=== PATIENT | female | born 2005 | race Caucasian/White ===

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

== ENCOUNTER 2025-03-11 16:09 | Inpatient (IN) | payer MEDICAID, SELFPAY ==
[2025-03-11] VITALS (12 sets, daily range): BP systolic 111–133; BP diastolic 63–77; PULSE 87–123; RESP 16–20; TEMP 36.7–37; O2SAT 99–100; BMI 28.3; BMI 28.4
--- NOTE | 2025-03-11 15:36 | US_ITS ---
PROCEDURE INFORMATION: Exam: US , Follow up Exam date and time: 03/11/2025 3:52 PM Clinical indication: Multiple pregnancies; Twin ; Fetus 2; Third trimester (>=28 weeks 0 days); ; Additional info: Twin , vomiting, headache TECHNIQUE: Imaging protocol: Transabdominal ultrasound of the uterus, real time with image documentation. Follow-up (eg, re-evaluation of size by measuring standard growth parameters and amniotic fluid volume, re-evaluation of organ system(s) suspected or confirmed to be abnormal on a previous scan). COMPARISON: No relevant prior studies available. FINDINGS: Gestation: Monochorionic diamniotic twin gestation, fetus A. heart rate: 155 bpm presentation and position: presentation is cephalic. Placenta: Placenta is posterior/right lateral and grade 2. Amniotic fluid (Qualitative): Amniotic fluid is within normal limits for gestational age. kidneys: kidneys are normal. urinary bladder: bladder is normal. BIOMETRY: Gestational age (AUA): 29 weeks 6 days (30 weeks 4 days by LMP) Estimated due date (AUA): 05/21/2025 Estimated weight: 3 lb 2 oz +/- 7 oz (12 percentile) Biparietal diameter (BPD): 76 mm, 30 weeks 5 days (40 percentile) Head circumference (HC): 269 mm, 29 weeks 3 days (<2 percentile) Abdominal circumference (AC): 258 mm, 30 weeks 0 days (27 percentile) Femur length (FL): 55 mm, 29 weeks 0 days (5 percentile) IMPRESSION: Monochorionic diamniotic twin gestation fetus A, as above. PROCEDURE INFORMATION: Exam: US , Follow up Exam date and time: 03/11/2025 3:52 PM Clinical indication: Multiple pregnancies; Twin ; Fetus 2; Third trimester (>=28 weeks 0 days); ; Additional info: Twin , vomiting, headache TECHNIQUE: Imaging protocol: Transabdominal ultrasound of the uterus, real time with image documentation. Follow-up (eg, re-evaluation of size by measuring standard growth parameters and amniotic fluid volume, re-evaluation of organ system(s) suspected or confirmed to be abnormal on a previous scan). COMPARISON: No relevant prior studies available. FINDINGS: Gestation: Monochorionic diamniotic twin gestation, fetus B. heart rate: 172 bpm presentation and position: presentation is breech. Placenta: Placenta is posterior/right lateral and grade 2. Amniotic fluid (Qualitative): Amniotic fluid is within normal limits for gestational age. BIOMETRY: Gestational age (AUA): 30 weeks 2 days (30 weeks 4 days by LMP) Estimated due date (AUA): 05/18/2025 Estimated weight: 3 lb 9 oz +/- 8 oz (42 percentile) Biparietal diameter (BPD): 74 mm, 29 weeks 4 days (13 percentile) Head circumference (HC): 272 mm, 29 weeks 5 days (for percentile) Abdominal circumference (AC): 270 mm, 31 weeks 6 days (81 percentile) Femur length (FL): 56 mm, 29 weeks 4 days (11 percentile) IMPRESSION: Monochorionic diamniotic twin gestation fetus B, as above. PROCEDURE INFORMATION: Exam: US Biophysical Profile Without Non-Stress Test Exam date and time: 03/11/2025 3:52 PM Age: 19 years old Clinical indication: Multiple pregnancies; Twin ; Fetus 2; Third trimester (>=28 weeks 0 days); ; Additional info: Twin , vomiting, headache TECHNIQUE: Imaging protocol: US biophysical profile without non-stress testing. COMPARISON: US OB TRANSVAGINAL 04/23/2022 12:08 AM FINDINGS: Gestation: Fetus A heart rate: 155 bpm BIOPHYSICAL PROFILE: breathing (BPP): 2 out of 2. gross body movement (BPP): 2 out of 2. tone (BPP): 2 out of 2. Amniotic fluid (BPP): 2 out of 2. IMPRESSION: Normal biophysical profile score for fetus A 8/8. PROCEDURE INFORMATION: Exam: US Biophysical Profile Without Non-Stress Test Exam date and time: 03/11/2025 3:52 PM Age: 19 years old Clinical indication: Multiple pregnancies; Twin ; Fetus 2; Third trimester (>=28 weeks 0 days); ; Additional info: Twin , vomiting, headache TECHNIQUE: Imaging protocol: US biophysical profile without non-stress testing. COMPARISON: US OB TRANSVAGINAL 04/23/2022 12:08 AM FINDINGS: Gestation: Fetus B heart rate: 172 bpm BIOPHYSICAL PROFILE: breathing (BPP): 2 out of 2. gross body movement (BPP): 2 out of 2. tone (BPP): 2 out of 2. Amniotic fluid (BPP): 2 out of 2. IMPRESSION: Normal biophysical profile score for fetus B /.
[2025-03-11 15:58] LABS: Hematocrit 29.5 % (37.0-47.0); Hemoglobin 9.0 g/dL (12.2-16.2); Immature Granulocytes % 0.4 %; Mean Corpuscular HGB Conc 30.5 g/dL (31.8-35.4); Mean Corpuscular Hemoglobin 21.8 pg (27.0-31.2); Mean Corpuscular Volume 71.6 fl (81-99); Nucleated Red Blood Cells % 0 %; Platelet Count 288 K/mm3 (142-424); Red Blood Count 4.12 M/mm3 (4.20-5.40); Red Cell Distribution Width-SD 40.0 fL; White Blood Count 11.0 K/mm3 (4.5-13.0)
[2025-03-11] MEDS: MAGNESIUM SULFATE IN WATER 4 GM/50 ML PIGGYBACK IV (16:00)
[2025-03-11] MEDS: INDOMETHACIN 25 MG CAPSULE 50 MG PO (16:00)
--- NOTE | 2025-03-11 16:04 | EXP.HPDC ---
General Admission date:: 03/11/25 Discharge date: 03/11/25 *Admission Date: 03/11/25 *Chief complaint: contractions *History of present illness: Silvia Mullins is a 19yo [facility] Disclaimer: The information contained in this section may have been updated after the patient was seen, as this information can be updated by other users. Surgical History H/O adenoidectomy History of tonsillectomy Family History Father Diabetes Mother Hyperlipidemia Hypertension Social History Smoking Status: Never smoker alcohol intake: never substance use type: denies use current occupational status: other Travel in the last 8 weeks?: None Have you lived/traveled outside US in past 30 days?: No Contact w/someone who lives/traveled outside US past 30 days?: No Exposure to someone with infectious disease in past 14 days?: No Do you have a fever (greater than 100.4 F or 38 C)?: No Have you tested positive for COVID-19?: No Exposed to someone with COVID-19 in past 14 days?: No Do you have a sore throat?: No Do you have a cough?: No Do you have any weakness?: No Do you have any diarrhea?: No Are you experiencing any unusual bleeding?: No Do you have any muscle aches/pain?: No Do you have any abdominal pain?: No Are you experiencing loss of taste or smell?: No Exam Data for Last 24 hours Vital signs and Labs for Last 24 Hours: Laboratory Results - last 24 hr 03/11/25 15:43: WBC 11.0, RBC 4.12 L, Hgb 9.0 L, Hct 29.5 L, MCV 71.6 L, MCH 21.8 L, MCHC 30.5 L, RDW 15.4, Plt Count 288, MPV 11.9 H, Neut % (Auto) 90.8 H, Lymph % (Auto) 5.7 L, [place] % (Auto) 2.7, Eos % (Auto) 0.2, Baso % (Auto) 0.2, Neut # (Auto) 10.0 H, Lymph # (Auto) 0.6 L, [place] # (Auto) 0.3, Eos # (Auto) 0.0, Baso # (Auto) 0.0 Meds Home Medications and Allergies Home Medications ?Medication ?Instructions ?Recorded ?Confirmed ?Type ciprofloxacin 0.3 %-dexamethasone 4 drp otic (ear) BID #7.5 mL 02/23/25 02/23/25 Rx 0.1 % ear drops,suspension famotidine 20 mg tablet 20 mg PO BID 02/23/25 02/23/25 History New Prescriptions to Start Prescriptions: Allergies Allergy/AdvReac Type Severity Reaction Status Date / Time No Known Allergies Allergy Verified 02/23/25 14:05 Results Data Completed and Pending Labs on day of discharge: Labs from last 24 hours 03/11/25 15:43 WBC 11.0 RBC 4.12 L Hgb 9.0 L Hct 29.5 L MCV 71.6 L MCH 21.8 L MCHC 30.5 L RDW 15.4 Plt Count 288 MPV 11.9 H Neut % (Auto) 90.8 H Lymph % (Auto) 5.7 L [place] % (Auto) 2.7 Eos % (Auto) 0.2 Baso % (Auto) 0.2 Neut # (Auto) 10.0 H Lymph # (Auto) 0.6 L [place] # (Auto) 0.3 Eos # (Auto) 0.0 Baso # (Auto) 0.0 Discharge Plan Follow up Plan Prescriptions/Medication Reconciliation: No Action famotidine 20 mg tablet 20 mg PO BID ciprofloxacin-dexamethasone 0.3-0.1 % drops,suspension 4 drp otic (ear) BID Qty: 7.5 0RF Patient Discharge Instructions Print Language: Italian Providers Primary Care Provider: Chay Babin Admit Provider: Julieta Lawson Attending Provider: Julieta Lawson
[2025-03-11 16:11] LABS: Alanine Aminotransferase 19 U/L (12-78); Albumin Level 3.9 g/dl (3.5-5.0); Albumin/Globulin Ratio 1.2 (1.1-1.8); Alkaline Phosphatase 187 U/L (38-126); Anion Gap 16.9 mEq/L (5-15); Aspartate Amino Transferase 31 U/L (14-36); Bilirubin,Total 1.6 mg/dl (0.2-1.3); Blood Urea Nitrogen 5 mg/dl (7-17); Calcium 8.7 mg/dl (8.4-10.2); Carbon Dioxide 17 mmol/L (22.0-30.0); Chloride 106 mmol/L (98-107); Creatinine,Serum 0.70 mg/dl (0.52-1.04); Estimated Glomerular Filt Rate 107 ml/min (>60); GFR (African American) 129 ML/MIN (>60); Globulin 3.2 g/dL (1.3-3.2); Glucose 81 mg/dl (74-100); Potassium 3.9 mmoL/L (3.5-5.1); Sodium 136 mmol/L (136-145); Total Protein,Serum 7.1 g/dl (6.3-8.2)
[2025-03-11] MEDS: LACTATED RINGERS 1000ML 1,000 ML 75 ML IV (16:17)
[2025-03-11] MEDS: MAGNESIUM SULFATE IN WATER 20 GM/500 ML IV.SOLN IV (16:17)
[2025-03-11 16:25] LABS: Fetal Fibronectin (Rapid) Positive (Negative)
[2025-03-11] MEDS: MAGNESIUM SULFATE IN WATER 2 GM/50 ML PIGGYBACK IV (16:26)
[2025-03-11] MEDS: ONDANSETRON 4MG/2ML VIAL 4 MG IV (16:30)
[2025-03-11] MEDS: AMPICILLIN SODIUM 2 GM in 0.9 % SODIUM CHLORIDE 100 ML IV (17:00)
[2025-03-11] MEDS: MEPERIDINE 25MG/ML 1ML SYRINGE 12.5 MG IV (19:20)
--- NOTE | 2025-03-11 19:20 | P.HP_ITS ---
History of Present Illness *Admission Date: 03/11/25 *Reason for visit:: labor *History of present illness: Silvia Mullins is a very pleasant 19-year-old -0-1-1 who presented as a worldwide call patient. She previously received care at an outside facility and we did not have access to those records. On presentation the patient complained of regular painful contractions. She endorses good movement and denied any leakage of fluid or vaginal bleeding. Her has been followed by maternal- medicine secondary to a monochorionic diamniotic . I called the previous labor and delivery who reviewed verbally her labs with me. I reviewed her blood pressures which have been appropriate throughout this . O+, antibody negative, rubella immune, hepatitis Bs Ag negative, hepatitis C negative, RPR negative, HIV negative 1 hour GTT: 133, no 3-hour GTT GBS unknown PFSH [facility] Disclaimer: The information contained in this section may have been updated after the patient was seen, as this information can be updated by other users. Surgical History H/O adenoidectomy History of tonsillectomy Family History Father Diabetes Mother Hyperlipidemia Hypertension Social History Smoking Status: Never smoker alcohol intake: never substance use type: denies use current occupational status: other Travel in the last 8 weeks?: None Have you lived/traveled outside US in past 30 days?: No Contact w/someone who lives/traveled outside US past 30 days?: No Exposure to someone with infectious disease in past 14 days?: No Do you have a fever (greater than 100.4 F or 38 C)?: No Have you tested positive for COVID-19?: No Exposed to someone with COVID-19 in past 14 days?: No Do you have a sore throat?: No Do you have a cough?: No Do you have any weakness?: No Do you have any diarrhea?: No Are you experiencing any unusual bleeding?: No Do you have any muscle aches/pain?: No Do you have any abdominal pain?: No Are you experiencing loss of taste or smell?: No Review of Systems Review of Systems Review of systems (narrative): Review of Systems Constitutional: Denies fever, chills, and sweats Eyes: Denies vision change/ pain Respiratory: Denies cough and shortness of breath Cardiovascular: Denies chest pain and lightheadedness Gastrointestinal: Admits abdominal pain with contractions. Denies nausea, vomiting. Genitourinary: Denies dysuria and incontinence Musculoskeletal: Denies shoulder pain and back pain Neurological: Denies change in speech or headaches Meds Home Medications and Allergies Home Medications ?Medication ?Instructions ?Recorded ?Confirmed ?Type ciprofloxacin 0.3 %-dexamethasone 4 drp otic (ear) BID #7.5 mL 02/23/25 02/23/25 Rx 0.1 % ear drops,suspension famotidine 20 mg tablet 20 mg PO BID 02/23/25 History New Prescriptions to Start Prescriptions: Allergies Allergy/AdvReac Type Severity Reaction Status Date / Time No Known Allergies Allergy Verified 02/23/25 14:05 Exam Data for Last 24 hours Vital signs and Labs for Last 24 Hours: Laboratory Results - last 24 hr 03/11/25 15:43: WBC 11.0, RBC 4.12 L, Hgb 9.0 L, Hct 29.5 L, MCV 71.6 L, MCH 21.8 L, MCHC 30.5 L, RDW 15.4, Plt Count 288, MPV 11.9 H, Neut % (Auto) 90.8 H, Lymph % (Auto) 5.7 L, [place] % (Auto) 2.7, Eos % (Auto) 0.2, Baso % (Auto) 0.2, Neut # (Auto) 10.0 H, Lymph # (Auto) 0.6 L, [place] # (Auto) 0.3, Eos # (Auto) 0.0, Baso # (Auto) 0.0, Sodium 136, Potassium 3.9, Chloride 106, Carbon Dioxide 17 L, Anion Gap 16.9 H, BUN 5 L, Creatinine 0.70, Estimated GFR 107, Est GFR ( Amer) 129, Glucose 81, Calcium 8.7, Total Bilirubin 1.6 H, AST 31, ALT 19, Alkaline Phosphatase 187 H, Total Protein 7.1, Albumin 3.9, Globulin 3.2, Albumin/Globulin Ratio 1.2 03/11/25 15:48: Fibronectin Positive A 03/11/25 16:42: Blood Type O Positive, Antibody Screen Negative, Crossmatch (AHG) See Detail 03/11/25 18:28: Cord ABG pH 7.34 L 03/11/25 18:28: Cord ABG pH 7.29 L 03/11/25 18:30: Cord ABG pH 7.36 I & O for Last 24 hours: Intake & Output 03/08/25 03/09/25 03/10/25 03/11/25 23:59 23:59 23:59 23:59 Weight 176 lb Narrative: General: patient is alert oriented in no acute distress and responds appropriately to questions. HEENT: NCAT, EOMI, moist mucous membranes, neck supple with full ROM Cardiovascular: RRR +S1/S2, no murmurs or rubs Pulmonary: Clear to auscultation bilaterally, nonlabored breathing, symmetric chest rise Abdominal: Gravid abdomen appropriate for gestation. No guarding, rebound, or tenderness noted. Extremities: trace edema, no tenderness or cyanosis noted Skin: Normal turgor, intact, warm. Negative for erythema, pallor, petechia, or lesions Neurologic: Negative for sensory or motor deficit Psychiatric: Normal affect, normal thought process, good judgment and insight, no depression or anxious mood appreciated. *Routine HEENT Exam Head: Present normocephalic and atraumatic Eye: Present EOMI, PERRL and normal accommodation; Absent conjunctival icterus, scleral injection, nystagmus or exophthalmos ENT: Present mucous membranes moist *Routine Respiratory Exam Respiratory: Present CTA bilaterally, normal respiratory effort, able to speak in complete sentences and symmetric chest movement; Absent accessory muscle use, decreased breath sounds, rales, respiratory distress, wheezes, distant breath sounds or diminished air movement *Routine Cardiovascular Exam Cardiovascular: Present RRR, Normal S1 and Normal S2; Absent murmur or gallop *Routine Abdominal Exam Abdominal: Present soft and normoactive bowel sounds; Absent tenderness, distended, rebound or guarding *Routine Rectal Exam Rectal:: deferred *Routine Genitalia Exam Genitalia:: normal female Assessment and Plan *Assessment and plan (1) : Status: Acute Category: Medical Code(s): Z34.90 - Encounter for supervision of normal , unspecified, unspecified trimester (2) Monochorionic diamniotic twin gestation in third trimester: Status: Acute Category: Medical Code(s): O30.033 - Twin , monochorionic/diamniotic, third trimester (3) Active labor: Status: Acute Category: Medical (4) labor in third trimester: Status: Acute Category: Medical Code(s): O60.03 - labor without delivery, third trimester Plan - Monitor vitals - Admit to L&D for labor monitoring and delivery. Immediately the patient had an SVE which revealed she was 4 cm. I called [facility] where Dr. Devine excepted transfer of the patient. 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 Air transport was not available. We reached out to [facility] to see if they had a air or ground transport to transport the patient faster we were unable to transport the patient. The patient continued to have contractions every 2 minutes despite 6 g of magnesium and 50 mg of indomethacin. The patient called out in pain and was noted to go from 4 cm to 6 cm. Approximately 20 minutes later she was 7 to 8 cm. Infant A was noted to have early and variable decelerations. At this time decision was made to proceed with delivery of the monochorionic diamniotic twins. We discussed a vaginal delivery. Presentation was vertex with breech of B. Their weights were less than 1500 g and they were less than 32 weeks gestation therefore delivery was the optimal route of delivery. The patient was counseled on this. She voiced understanding and consented to proceed. - Ultrasound was ordered to confirm her estimated weights and position - Steroids were ordered but not able to be administered prior to delivery - GBS prophylaxis was administered - A magnesium bolus of 6 g was started followed by 2 g an hour - Indomethacin was administered - GBS unknown/ Blood type: O+ - Hemoglobin: 9.0, Plt: 288 - Plan for spinal anesthesia - Anticipate delivery of female infants: Nika #Anemia - monitor #Mo/Di twins - plan for CS. Called and reviewed ultrasound weights with labor and delivery where she was receiving care. Estimated gestational age of 30 weeks and 4 days with infant a in the 54th percentile if it be in the 58th percentile. Reported with appropriate Dopplers Reviewed the risks benefits and alternatives to primary delivery. Discussed the risk of bleeding, infection injury to the surrounding structures. Patient consented to blood transfusion if medically necessary. Reviewed the rare risk of hysterectomy if bleeding is unable to be controlled. Discussed risk of infection, the patient has no allergies and will receive 2 g of Ancef and 500mg of azithromycin preoperatively. Reviewed the risk of injury to surrounding structures including the bowel, bladder, reproductive organs, and neurovascular bundles. Patient voiced understanding. Discussed the increased risk with prior surgery and scarring. Patient and significant other voiced understanding desire to proceed
--- NOTE | 2025-03-11 19:32 | P.PNANES_ITS ---
[facility] Disclaimer: The information contained in this section may have been updated after the patient was seen, as this information can be updated by other users. Surgical History H/O adenoidectomy History of tonsillectomy Family History Father Diabetes Mother Hyperlipidemia Hypertension Social History Smoking Status: Never smoker alcohol intake: never substance use type: denies use current occupational status: other Travel in the last 8 weeks?: None Have you lived/traveled outside US in past 30 days?: No Contact w/someone who lives/traveled outside US past 30 days?: No Exposure to someone with infectious disease in past 14 days?: No Do you have a fever (greater than 100.4 F or 38 C)?: No Have you tested positive for COVID-19?: No Exposed to someone with COVID-19 in past 14 days?: No Do you have a sore throat?: No Do you have a cough?: No Do you have any weakness?: No Do you have any diarrhea?: No Are you experiencing any unusual bleeding?: No Do you have any muscle aches/pain?: No Do you have any abdominal pain?: No Are you experiencing loss of taste or smell?: No [facility] Anesthesia Checklist Patient Identification Patient Identification: Arm Band Structural Data Admitted From: Home Planned Operative Procedure/s: Primary C/S Consent for Planned Operative Procedure(s) Verified: Yes Verified Documents: Surgical Consent and History and Physical Additional verifications Anesthesia Reactions: No Airway Assessment Mallampati Score:: Class II C-Spine Mobility Assessed: Yes TMJ Mobility Assessed: Yes Dentition: Good Dentition Neurological Assessment Level of Consciousness: Awake, Alert and Appropriate Anesthesia Plan Anesthesia Risk discussed: Yes Anesthesia Plan: Verified ASA Class: II (E) Anesthesia Type: Spinal (with Bilateral TAP Block)
--- NOTE | 2025-03-11 19:32 | EXP.ANES.I ---
[facility] Anesthesia Record Part I Anesthesia Record I Intake, IV Amount: 1,800 Hydration: Adequate Estimated blood loss (mL): 500 Urine output (mL): 100 Blood Products used (#): none Blood Pressure: 129/67 SaO2: 100 Pulse Rate: 115 Airway Patency: Patent Respiratory Rate: 16 Temperature: 98.3 F Patient is:: Awake and Stable Stable to PACU at:: 19:15
--- NOTE | 2025-03-11 19:34 | P.OP_ITS ---
Date of procedure: 03/11/25 Pre-op Diagnosis:: 1. 30 weeks 4 days gestation 2. Monochorionic diamniotic twin gestation 3. Active labor 4. Vertex followed by breech presentation 5. GBS unknown 6. Rh Positive Post-op Diagnosis:: 1. 30 weeks 4 days gestation 2. Monochorionic diamniotic twin gestation 3. Active labor 4. Vertex followed by breech presentation 5. GBS unknown 6. Rh Positive Procedure performed:: Primary Delivery Surgeon:: Julieta Lawson DO Pharmaceutical Plant Operator(s):: Dr. Miller SENIOR ASP NET DEVELOPER:: Mitchell Juarez Anesthesia: spinal Estimated blood loss (mL): 450 Operative findings:: 1. Infant A: Live viable female : Xi. Weight: 3pounds 9ounces. Apgars 7 and 9 at 1 and 5 minutes respectively. Delivery time: 1823. Arterial cord pH: 7.29, Arterial cord base excess: unknown at this time. Venous cord pH: 7.34, Venous cord base excess: unknown at this time 2. Infant B: Live viable female : Deonna. Weight: 3pounds 15ounces. Apgars 7 and 8 at 1 and 5 minutes respectively. Delivery time: 1825. Arterial cord pH: unknown at this time, Arterial cord base excess: unknown at this time. Venous cord pH: 7.36, Venous cord base excess: unknown at this time 3. Normal-appearing fallopian tubes and ovaries bilaterally Operative note:: Medications: 2 g of Ancef, 500mg IV Azithromycin Summary: Procedure explained in its entirety. The patient was counseled on the risks and benefits of section including bleeding, vascular injury, infection, and injury to the surrounding structures. Hemorrhage requiring life saving blood t ransfusion resulting in blood born viral infection or allergic reaction was explained and the patient consented to blood transfusion. Possible need for further operative measures prolonging recovery time and hospitalization reviewed to include hysterectomy. Procedure explained in its entirety and patient had no further questions. Consented to procedure. The patient was taken back to the operating room where adequate spinal anesthesia was obtained. Pneumatic compression stockings applied to lower extremities. Above listed antibiotics were administered for infection prophylaxis. She was placed in the dorsal supine position Urinary catheter was placed and found to be draining clear urine. The patients abdomen and vagina were prepped. Patient was draped in sterile fashion. Anesthesia was tested and and found to be adequate. A Pfannenstiel skin incision was made with the scalpel. Subcutaneous bleeding vessels were cauterized with the bovie. The incision was taken down to the fascia with the bovie. The fascia was knicked in the midline and sharply extended laterally. The superior aspect of the fascia was grasped with Samara clamps and the rectus muscle was taken down with the Bovie. The rectus muscle was sharply dissected from the midline with May[place]. This process was repeated interiorly. The rectus muscles were in the midline, peritoneum was identified and entered bluntly. Aram O retractor was placed and the bladder was noted to be out of the operative field. A bladder flap was created with Metzenbaum scissors and Nigerien pickups. The lower uterine segment was easily identified, sharply incised, and entered bluntly with the surgeon's index finger. Incision was then extended in a superior and inferior fashion by blunt separation. Membranes were ruptured revealing clear fluid. Fetus A was in cephalic presentation. The head was carefully elevated out of the pelvis. Fundal pressure was applied when head was brought into incision. The infants head was delivered without difficulty. The shoulder and body followed without complication. had adequate tone and cry, delayed cord clamping was proceeded for 30 seconds. The umbilical cord was clamped and cut, and cord gases were obtained. was taken to warmer for evaluation by the mainspring strip gauger. Cord blood was collected. Fetus B was in breech presentation. The presenting buttocks was elevated out of the hysterotomy and rotated to an anterior position. The lower extremities were delivered via pinards maneuver. The upper extremities were rotated anteriorly and delivered via [place]. The head and chin were flexed and easily delivered. had adequate tone and cry, delayed cord clamping was proceeded for 30 seconds. The umbilical cord was clamped and cut, and cord gases were obtained. Infant was taken to warmer for evaluation by the mainspring strip gauger. Cord blood was collected. The placenta was delivered via fundal massage and found to be normal and intact. IV Pitocin was initiated. Inside of the uterus was gently cleared of blood and clots with lap sponge. The hysterotomy was closed with 0 Vicryl in a running locked fashion. The lower uterine segment was visualized and noted to be hemostatic. The vesicouterine peritoneum was reapproximated with 2-0 Monocryl. The ovaries and tubes were found to be normal. The posterior aspect of the uterus was cleared of blood clot with a damp lap sponge. The gutters were inspected bilaterally and cleared of blood and clots with lap sponges. The uterine incision was reinspected and hemostasis noted. Aram O retractor was removed. The peritoneum was reapproximated using a 2-0 Monocryl in a nonlocked running fashion. The fascia was closed in a running nonlocked fashion using #1 Vicryl. Fascia was noted as not having gaps or defects. The subcutaneous fat was closed with 2-0 Monocryl. Skin was closed with the INSORB suture in a subcuticular fashion. Patient tolerated the procedure well and all counts were correct x3, per nursing. Patient will receive tap blocks and then be transported to the OB PACU for recovery and infant bonding. Condition: stable Disposition: floor Specimens:: 1. Placenta 2. 2 live viable female infant 3. Arterial and venous pH and base excess Complications:: None
[2025-03-11] MEDS: OXYTOCIN/RINGERS LACTATE 30 UNITS/500 ML BAG 40 UNITS IV (20:00)
[2025-03-11] MEDS: LACTATED RINGERS 1000ML 1,000 ML 125 ML IV (20:00)
--- NOTE | 2025-03-11 20:00 | SUR.PREOP ---
1800-OB staff arrived to OR with patient vi bed. Report taken by JOEY Marie. CARL Aguila at bedside.
[2025-03-11 20:30] LABS: Microscopic,Cath URINE MICROSCOPIC (MICROSCOPIC)
[2025-03-11] MEDS: ACETAMINOPHEN 500MG TAB 1000 MG PO (20:31)
[2025-03-11 20:32] LABS: Appearance,Urine/Cath CLEAR (Clear); Bilirubin,Cath Negative (Negative); Blood, Urine/Cath Negative (Negative); Color,Urine/Cath YELLOW (Yellow); Glucose,Urine/Cath (UA) Negative (Negative); Ketones,Urine/Cath 3+ (Negative); Leukocyte Esterase,Cath Negative (Negative); Nitrate,Cath Negative (Negative); PH,Urine/Cath 6.0 (5.0-8.5); Protein,Urine/Cath Negative (Negative); Urobilinogen,Cath 0.2 EU/dl (0.2)
[2025-03-11 20:49] LABS: Specific Gravity, Urine/Cath 1.020 (1.005-1.030)
[2025-03-11 21:02] LABS: Bacteria,Urine/Cath 2+ /lpf
[2025-03-11] MEDS: OXYCODONE 5MG IMMEDIATE RELEASE TABLET 5 MG PO (21:15)
[2025-03-12] VITALS (14 sets, daily range): BP systolic 95–120; BP diastolic 57–71; PULSE 61–92; RESP 16–18; TEMP 36.4–36.8; O2SAT 98–100
[2025-03-12] MEDS: KETOROLAC 30MG/ML VIAL 30 MG IV ×3 (01:16→15:10)
[2025-03-12] MEDS: ACETAMINOPHEN 500MG TAB 1000 MG PO ×2 (05:02→12:13)
[2025-03-12 08:05] LABS: Hematocrit 24.2 % (37.0-47.0); Red Blood Count 3.35 M/mm3 (4.20-5.40); White Blood Count 7.8 K/mm3 (4.5-13.0)
[2025-03-12 08:06] LABS: Immature Granulocytes % 0.6 %; Mean Corpuscular HGB Conc 29.8 g/dL (31.8-35.4); Mean Corpuscular Hemoglobin 21.5 pg (27.0-31.2); Mean Corpuscular Volume 72.2 fl (81-99); Nucleated Red Blood Cells % 0.3 %; Platelet Count 210 K/mm3 (142-424); Red Cell Distribution Width-SD 40.2 fL
[2025-03-12 08:07] LABS: Hemoglobin 7.2 g/dL (12.2-16.2)
[2025-03-12] MEDS: SENNA 8.6MG TABLET 8.6 MG PO (08:25)
[2025-03-12 08:35] LABS: RPR W/RFX Titers Nonreactive (Nonreactive)
[2025-03-12] MEDS: OXYCODONE 5MG IMMEDIATE RELEASE TABLET 5 MG PO (09:12)
--- NOTE | 2025-03-12 10:19 | EXP.DC.SUM ---
General Admission date:: 03/11/25 Discharge date: 03/12/25 HPI HPI HPI: Silvia Mullins is a very pleasant 19-year-old -0-1-1 who presented as a worldwide call patient. She previously received care at an outside facility and we did not have access to those records. On presentation the patient complained of regular painful contractions. She endorses good movement and denied any leakage of fluid or vaginal bleeding. Her has been followed by maternal- medicine secondary to a monochorionic diamniotic . I called the previous labor and delivery who reviewed verbally her labs with me. I reviewed her blood pressures which have been appropriate throughout this . O+, antibody negative, rubella immune, hepatitis Bs Ag negative, hepatitis C negative, RPR negative, HIV negative 1 hour GTT: 133, no 3-hour GTT GBS unknown Hospital Course Hospital Course Hospital Course: Silvia Mullins is a very pleasant 19-year-old -0-1-3 who presented to labor and delivery as a new patient yesterday with contractions. She was noted to be 30 weeks and 4 days. Ultrasound was obtained and mono Di was suspected. Patient arrived at 4 cm dilated and made rapid change to complete. On arrival magnesium was started for neuroprotection. Patient progressed prior to receiving steroids. Ampicillin was started for GBS prophylaxis. Given the gestational age of 30 weeks and baby B presenting breech decision was made to proceed with a primary delivery. The patient was counseled. Delivery was uncomplicated. 2 female infants did relatively well following delivery and at discharge from our institution had not required intubation. AXi weighed 3 pounds 9 ounces and had Apgars of 7 and 9 at 1 and 5 minutes respectively. Delivered at 1824. BDeonna weighed 3 pounds 15 ounces and had Apgars of 7 and 8 at 1 and 5 minutes respectively. Delivery at 1826. She has done well and has remained afebrile with her at her hospitalization. She is eating and drinking and ambulating. She is pumping and plans to . Her lochia is normal. She has O Rh+ blood, she is rubella immune and was group B streptococcus unknown. She presetned with an anemia, EBL at delivery was appropriate but her HGB dropped to 7.2 and pt was given a unit of blood prior to discharge. Pt to be discharged around 5-6pm tonight as long as she is doing well She will be discharged home to follow-up with Dr. Lawson in 2 weeks time. She will continue with her vitamins and iron. She has a prescription for Percocet and will continue these at home. She will take ibuprofen as well. She was given the usual instructions with respect to limiting her activity, driving and sexual activity. She was given instructions with respect to wound care. Her condition on discharge is stable and improved. Exam Data for Last 24 hours Vital signs and Labs for Last 24 Hours: Temp Pulse Resp BP Pulse Ox O2 Del Method 98.0 F 80 17 103/59 L 100 Room Air 03/12/25 08:28 03/12/25 08:28 03/12/25 08:28 03/12/25 08:28 03/12/25 08:28 03/12/25 08:28 Laboratory Results - last 24 hr 03/11/25 15:43: WBC 11.0, RBC 4.12 L, Hgb 9.0 L, Hct 29.5 L, MCV 71.6 L, MCH 21.8 L, MCHC 30.5 L, RDW 15.4, Plt Count 288, MPV 11.9 H, Neut % (Auto) 90.8 H, Lymph % (Auto) 5.7 L, [place] % (Auto) 2.7, Eos % (Auto) 0.2, Baso % (Auto) 0.2, Neut # (Auto) 10.0 H, Lymph # (Auto) 0.6 L, [place] # (Auto) 0.3, Eos # (Auto) 0.0, Baso # (Auto) 0.0, Sodium 136, Potassium 3.9, Chloride 106, Carbon Dioxide 17 L, Anion Gap 16.9 H, BUN 5 L, Creatinine 0.70, Estimated GFR 107, Est GFR ( Amer) 129, Glucose 81, Calcium 8.7, Total Bilirubin 1.6 H, AST 31, ALT 19, Alkaline Phosphatase 187 H, Total Protein 7.1, Albumin 3.9, Globulin 3.2, Albumin/Globulin Ratio 1.2 03/11/25 15:48: Fibronectin Positive A 03/11/25 16:42: RPR w/Rflx to Titer Nonreactive, Blood Type O Positive, Antibody Screen Negative, Crossmatch (AHG) See Detail 03/11/25 18:10: Urine Color Yellow, Urine Appearance Clear, Urine pH 6.0, Ur Specific [place] 1.020, Urine Protein Negative, Urine Glucose (UA) Negative, Urine Ketones 3+, Urine Blood Negative, Urine Nitrate Negative, Urine Bilirubin Negative, Urine Urobilinogen 0.2, Ur Leukocyte Esterase Negative, Urine RBC None, Urine WBC 3-5, Ur Squamous Epith Cells None, Urine Bacteria 2+ A 03/11/25 18:28: Cord ABG pH 7.34 L 03/11/25 18:28: Cord ABG pH 7.29 L 03/11/25 18:30: Cord ABG pH 7.36 03/12/25 06:38: WBC 7.8 D, RBC 3.35 L, Hgb 7.2 L D, Hct 24.2 L, MCV 72.2 L, MCH 21.5 L, MCHC 29.8 L, RDW 15.4, Plt Count 210 D, MPV 11.4 H, Neut % (Auto) 80.7 H, Lymph % (Auto) 10.6, [place] % (Auto) 7.0, Eos % (Auto) 1.0, Baso % (Auto) 0.1, Neut # (Auto) 6.3, Lymph # (Auto) 0.8, [place] # (Auto) 0.6, Eos # (Auto) 0.1, Baso # (Auto) 0.0 I & O for Last 24 hours: Intake & Output 03/09/25 03/10/25 03/11/25 03/12/25 23:59 23:59 23:59 23:59 Intake Total 2494.583 / 2494.583 1170 / 1170 Balance 2494.583 / 2494.583 1170 / 1170 Weight 176 lb Constitutional Constitutional: no acute distress *Routine HEENT Exam Head: Present normocephalic Eye: Present EOMI and PERRL ENT: Present mucous membranes moist *Routine Neck Exam Neck: Present supple; Absent lymphadenopathy *Routine Respiratory Exam Respiratory: Present CTA bilaterally *Routine Cardiovascular Exam Cardiovascular: Present RRR *Routine Abdominal Exam Abdominal: Present soft and normoactive bowel sounds; Absent tenderness *Routine Extremities Exam Extremities: Absent cyanosis, clubbing or edema *Routine Skin Exam Skin: Present warm; Absent rash *Routine Neurological Exam Neurological: Present alert and oriented X3 Results Data Completed and Pending Labs on day of discharge: Labs from last 24 hours 03/12/25 03/11/25 03/11/25 06:38 18:30 18:28 WBC 7.8 D RBC 3.35 L Hgb 7.2 L D Hct 24.2 L MCV 72.2 L MCH 21.5 L MCHC 29.8 L RDW 15.4 Plt Count 210 D MPV 11.4 H Neut % (Auto) 80.7 H Lymph % (Auto) 10.6 [place] % (Auto) 7.0 Eos % (Auto) 1.0 Baso % (Auto) 0.1 Neut # (Auto) 6.3 Lymph # (Auto) 0.8 [place] # (Auto) 0.6 Eos # (Auto) 0.1 Baso # (Auto) 0.0 Cord ABG pH 7.36 7.29 L Sodium Potassium Chloride Carbon Dioxide Anion Gap BUN Creatinine Estimated GFR Est GFR ( Amer) Glucose Calcium Total Bilirubin AST ALT Alkaline Phosphatase Total Protein Albumin Globulin Albumin/Globulin Ratio Urine Color Urine Appearance Urine pH Ur Specific [place] Urine Protein Urine Glucose (UA) Urine Ketones Urine Blood Urine Nitrate Urine Bilirubin Urine Urobilinogen Ur Leukocyte Esterase Urine RBC Urine WBC Ur Squamous Epith Cells Urine Bacteria RPR w/Rflx to Titer Fibronectin Blood Type Antibody Screen Crossmatch (AHG) 03/11/25 03/11/25 03/11/25 18:28 18:10 16:42 WBC RBC Hgb Hct MCV MCH MCHC RDW Plt Count MPV Neut % (Auto) Lymph % (Auto) [place] % (Auto) Eos % (Auto) Baso % (Auto) Neut # (Auto) Lymph # (Auto) [place] # (Auto) Eos # (Auto) Baso # (Auto) Cord ABG pH 7.34 L Sodium Potassium Chloride Carbon Dioxide Anion Gap BUN Creatinine Estimated GFR Est GFR ( Amer) Glucose Calcium Total Bilirubin AST ALT Alkaline Phosphatase Total Protein Albumin Globulin Albumin/Globulin Ratio Urine Color Yellow Urine Appearance Clear Urine pH 6.0 Ur Specific [place] 1.020 Urine Protein Negative Urine Glucose (UA) Negative Urine Ketones 3+ Urine Blood Negative Urine Nitrate Negative Urine Bilirubin Negative Urine Urobilinogen 0.2 Ur Leukocyte Esterase Negative Urine RBC None Urine WBC 3-5 Ur Squamous Epith Cells None Urine Bacteria 2+ A RPR w/Rflx to Titer Nonreactive Fibronectin Blood Type O Positive Antibody Screen Negative Crossmatch (G) See Detail 03/11/25 03/11/25 15:48 15:43 WBC 11.0 RBC 4.12 L Hgb 9.0 L Hct 29.5 L MCV 71.6 L MCH 21.8 L MCHC 30.5 L RDW 15.4 Plt Count 288 MPV 11.9 H Neut % (Auto) 90.8 H Lymph % (Auto) 5.7 L [place] % (Auto) 2.7 Eos % (Auto) 0.2 Baso % (Auto) 0.2 Neut # (Auto) 10.0 H Lymph # (Auto) 0.6 L [place] # (Auto) 0.3 Eos # (Auto) 0.0 Baso # (Auto) 0.0 Cord ABG pH Sodium 136 Potassium 3.9 Chloride 106 Carbon Dioxide 17 L Anion Gap 16.9 H BUN 5 L Creatinine 0.70 Estimated GFR 107 Est GFR ( Amer) 129 Glucose 81 Calcium 8.7 Total Bilirubin 1.6 H AST 31 ALT 19 Alkaline Phosphatase 187 H Total Protein 7.1 Albumin 3.9 Globulin 3.2 Albumin/Globulin Ratio 1.2 Urine Color Urine Appearance Urine pH Ur Specific [place] Urine Protein Urine Glucose (UA) Urine Ketones Urine Blood Urine Nitrate Urine Bilirubin Urine Urobilinogen Ur Leukocyte Esterase Urine RBC Urine WBC Ur Squamous Epith Cells Urine Bacteria RPR w/Rflx to Titer Fibronectin Positive A Blood Type Antibody Screen Crossmatch (AHG) DS: Diagnosis Discharge Diagnosis (1) : Status: Acute Code(s): Z34.90 - Encounter for supervision of normal , unspecified, unspecified trimester (2) Monochorionic diamniotic twin gestation in third trimester: Status: Acute Code(s): O30.033 - Twin , monochorionic/diamniotic, third trimester (3) Active labor: Status: Acute (4) labor in third trimester: Status: Acute Code(s): O60.03 - labor without delivery, third trimester Meds Home Medications and Allergies Home Medications ?Medication ?Instructions ?Recorded ?Confirmed ?Type ciprofloxacin 0.3 %-dexamethasone 4 drp otic (ear) BID #7.5 mL 02/23/25 02/23/25 Rx 0.1 % ear drops,suspension famotidine 20 mg tablet 20 mg PO BID 02/23/25 02/23/25 History acetaminophen 500 mg tablet 500 mg PO Q6H PRN fever or pain 03/12/25 Rx #30 tabs ferrous sulfate 325 mg (65 mg 325 mg PO DAILY #30 tabs 03/12/25 Rx iron) tablet,delayed release ibuprofen 800 mg tablet 800 mg PO Q8H PRN pain #60 tabs 03/12/25 Rx oxycodone 5 mg tablet 5 mg PO Q8H PRN pain #20 tabs 03/12/25 Rx sennosides 8.6 mg tablet (Senna 8.6 mg PO BIDP PRN Constipation 03/12/25 Rx Lax) #60 tabs simethicone 125 mg tablet 125 mg PO DAILY PRN abdominal 03/12/25 Rx distention #60 tabs New Prescriptions to Start Prescriptions: acetaminophen Julieta Lawson ferrous sulfate Julieta Lawson ibuprofen Julieta Lawson oxycodone Julieta Lawson sennosides [Senna Lax] Renny,Julieta simethicone Julieta Lawson Allergies Allergy/AdvReac Type Severity Reaction Status Date / Time No Known Allergies Allergy Verified 02/23/25 14:05 Discharge Plan Disposition Patient Disposition: Home, Self-Care Discharge Order Discharge Orders: Discharge Order (Routine); Ordered 03/12/25 Ordered By: Julieta Lawson Follow up Plan Follow up with: Julieta Lawson DO [Staff Physician, BOOK CR[employer]IC] - Enter time for follow up Prescriptions/Medication Reconciliation: New sennosides [Senna Lax] 8.6 mg Tablet 8.6 mg PO BIDP PRN (Reason: Constipation) Qty: 60 2RF ibuprofen 800 mg tablet 800 mg PO Q8H PRN (Reason: pain) Qty: 60 2RF acetaminophen 500 mg tablet 500 mg PO Q6H PRN (Reason: fever or pain) Qty: 30 3RF simethicone 125 mg tablet 125 mg PO DAILY PRN (Reason: abdominal distention) Qty: 60 2RF ferrous sulfate 325 mg (65 mg iron) tablet,delayed release (DR/EC) 325 mg PO DAILY Qty: 30 3RF oxycodone 5 mg tablet 5 mg PO Q8H PRN (Reason: pain) Qty: 20 0RF Continued famotidine 20 mg tablet 20 mg PO BID ciprofloxacin-dexamethasone 0.3-0.1 % drops,suspension 4 drp otic (ear) BID Qty: 7.5 0RF Problem Reconciliation Problems Reviewed?: Yes Patient Discharge Instructions ACTIVITY: Continue current activity DIET: regular diet Additional Instructions: Congratulations on the delivery of your sweet baby girls. It is my privilege to be your doctor and I am so thankful I could be a part of your special day. Discharge: 1. Take 800 mg Ibuprofen every 8 hours as needed for pain. You can also take 500-1000mg of Tylenol in between doses, every 6-8 hours. Use prescription pain medicine for pain you feel in between 8 hour interval. -No driving while taking narcotic pain medications. In order to drive you should be able to slam on the brakes without significant abdominal pain. 2. Wean from prescription pain medicine first. Do not drive while taking it. 3. Prescription pain medicine can make you constipated. Colace can be taken 1-2 times per day as you need. Make sure to drink at least 8 cups of water per day. 4. Iron supplements can make you constipated. Colace can be taken 1-2 times per day as you need. You can take iron tablets every other day if constipation is too bad. 5. Nothing in the vagina for 6 weeks - no intercourse, douching, tampons. No tub baths or swimming pools 6. Do not lift greater than 15 pounds for 6 weeks, this is the equivalent of 2 gallons of milk. 7. Reasons to return to L&D or call On-Call doctor - fever (greater than 100.4) - heavy vaginal bleeding (soaking through 1 pad in less than 2 hours or passing clots that are egg sized) - vaginal discharge (malodorous and/or purulent) - bleeding or discharge from her incision - severe headaches, leg tenderness/edema, or any other symptoms that warrant immediate medical attention. 8. depression/blues - Normal to feel anxious/overwhelmed for first 2 weeks - Talk to your doctor if: anxiety lasts over 2 weeks, trouble bonding with baby, withdrawing from other family members, thoughts of harming yourself or others Blood pressure and preeclampsia instructions -Please call if greater than 2 values are higher than: 150 systolic (the top number) or 100 diastolic (the bottom number). -Please go to the emergency room or labor and delivery triage if any value is higher than: 160 systolic (the top number) or 110 diastolic (the bottom number). -Please call if unrelenting headache (does not go away with rest or Tylenol or ibuprofen), changes in vision (spots, floaters, flashes of light), chest pain, shortness of breath, or right upper quadrant (liver) abdominal pain. Julieta Lawson DO [facility] [phone] *Nothing in the Vagina for 6 weeks* *No strenuous activity* *No heavy lifting* *No tub baths until okay's by MD* Print Language: Citizen Of [place] Providers Primary Care Provider: Chay Babin Admit Provider: Julieta Lawson Attending Provider: Julieta Lawson
[2025-03-12] MEDS: 0.9 % SODIUM CHLORIDE 250 ML 25 ML IV (10:55)
[2025-03-12] MEDS: LANOLIN CREAM 40GM TP (12:14)
--- NOTE | 2025-03-12 13:37 | EXP.ANES.II ---
[facility] Anesthesia Record Part II Anesthesia Record Part II Discharge Time: 19:45 Destination: Obstetric PACU nurse assessment reviewed?: Yes Patient Condition:: Good Anesthesia Complications:: None Swallowing reflex intact?: Yes Airway Patency: Patent Cyanosis?: No Blood Pressure: 118/71 SaO2: 100 Respiratory Rate: 17 Pulse Rate: 92 Temperature: 98.3 F Mental Status: Alert & Oriented Pain level:: 0 Nausea and/or vomitting:: None Intake, IV Amount: 0 Hydration: Adequate
[2025-03-12 14:28] LABS: Hematocrit 31.2 % (37.0-47.0)
[2025-03-12 14:31] LABS: Hemoglobin 9.5 g/dL (12.2-16.2)
== END 2025-03-12 17:33 | disposition home or self-care (01) | DRG 786 ==
LOC: OBOUT 16:10 → OB 16:10
PROVIDERS: Admitting Provider Obstetrics & Gynecology; PCP Family Medicine; Visit Provider Obstetrics & Gynecology
PROC: 10D00Z1 Extraction of Products of Conception, Low, Open Approach (ICD-10-PCS; CPT 59514; principal; 2025-03-11 18:00)
DX: O30.033 Twin pregnancy, monochorionic/diamniotic, third trimester (principal); O60.14X1 Preterm labor third trimester with preterm delivery third trimester, fetus 1; O60.14X2 Preterm labor third trimester with preterm delivery third trimester, fetus 2; Z3A.30 30 weeks gestation of pregnancy; Z37.2 Twins, both liveborn; O32.1XX2 Maternal care for breech presentation, fetus 2; O99.02 Anemia complicating childbirth; O76 Abnormality in fetal heart rate and rhythm complicating labor and delivery; O69.81X1 Labor and delivery complicated by cord around neck, without compression, fetus 1; O69.82X1 Labor and delivery complicated by other cord entanglement, without compression, fetus 1; Z23 Encounter for immunization; Z79.899 Other long term (current) drug therapy
CPT/HCPCS: 36415; 36430; 59025; 76811; 76819; 76820; 80053; 81001; 82731; 82800; 85014; 85018; 85025; 86592; 86850; 87086; 94761; J0290; J0665; J0666; J1885; J2003; J2175; J2371; J2405; J2704; J3010; J3475; J7050; J7120; P9016

== ENCOUNTER 2025-03-29 11:24 | Outpatient (CLI) | payer MEDICAID, SELFPAY ==
--- OUTSIDE RECORDS SUMMARY | 2025-02-28 10:44 | XMS_ITS | Encounter Summary ---
Author Organization Healthcare Address [address] [place] [address] Care Team Providers Care Pawn Shop Keeper Name Role Phone Pcp, No Primary Care Provider Unavailabl e Reason for Referral * Imaging (Routine) - Closed Specialty Diagnoses / Procedures Referred By Contac t Referred To Contact Diagnoses Monochorionic diamniotic twin gestation in second trimester Procedures OB US Follow Up Transabdominal Approach OB US Follow Up Transabdominal Approach Monty Espino APRN, CNM [address] [place] [address] Phone: tel: fax: Referral ID Status Reason Start Date Expiration Date Visits Re quested Visits Authorized [id number] Closed 01/25/2025 07/27/2026 1 1 Reason for Visit * Imaging (Routine) - Closed Specialty Diagnoses / Procedures Referred By Contac t Referred To Contact Diagnoses Monochorionic diamniotic twin gestation in second trimester Procedures OB US Follow Up Transabdominal Approach OB US Follow Up Transabdominal Approach Monty Espino APRN, CNM [address] [place] [id number] Phone: tel: fax: Referral ID Status Reason Start Date Expiration Date Visits Re quested Visits Authorized [id number] Closed 01/25/2025 07/27/2026 1 1 Encounter Details Date Type Department Care Team (Latest Contact Info) Description 02/28/2025 10:44 AM EST - 02/28/2025 11:59 PM EST Hospital Encounter Medical Office Building Obstetrics and Gynecology [address], [address] [place] [id number] Monochorionic diamniotic twin gestation in second trimester Discharge Disposition: Home or Self Care Social History Tobacco Use Types Packs/Day Years Used Date Smoking Tobacco: Never Assessed Comments Unknown Sex and Gender Information Value Date Recorded Sex Assigned at Not on file Legal Sex Female 10:55 AM EDT Gender Identity Not on file Sexual Orientation Not on file documented as of this encounter Plan of Treatment Upcoming Encounters Date Type Department Care Team ([facility] st Contact Info) Description 04/06/2025 2:[address] [facility] [address] [place] [address] Abdiaziz Haile DMD, MD [address] [place] [address] documented as of this encounter Procedures Procedure Name Priority Date/Time Associated Diagnosis Comments OB US FOLLOW UP TRANSABDOMINAL APPROACH Routine 02/28/2025 11:16 AM EST Monochorionic diamniotic twin gestation in second trimester documented in this encounter Results * OB US Follow Up Transabdominal Approach (02/28/2025 11:16 AM EST) Anatomical Region Laterality Modality Body Ultrasound 02/28/2025 10:3 9 AM EST Impressions 03/01/2025 8:27 AM EST The OB Ultrasound you requested has been resulted. Please navigate to the Imaging tab in [employer] for review. This message has been generated by the interface. Narrative Procedure Note Rachell Kelly MD - 03/01/2025 IMPRESSION: The OB Ultrasound you requested has been resulted. Please navigate to theImaging tab in [employer] for review. This message has been generated by [employer]. us Monty Espino APRN, CNM IMG OB US PROCEDURES Fin al Result documented in this encounter Visit Diagnoses Diagnosis Monochorionic diamniotic twin gestation in second trimester documented in this encounter Additional Health Concerns Assessment Noted Time A Body Mass Index follow-up plan has been documented for the patient 11/08/2024 3:30 PM EDT documented as of this encounter Care Teams Pawn Shop Keeper Relationship Specialty Start Date End Date Pcp, [place] [address] PCP - General Family Medicine 11/08/24 documented as of this encounter
--- OUTSIDE RECORDS SUMMARY | 2025-03-29 11:34 | XMS_ITS | Encounter Summary ---
Author Organization Healthcare Address [address] [place] [address] Care Team Providers Care Shirt Operator Name Role Phone Pcp, No Primary Care Provider Unavailabl e Encounter Details Date Type Department Care Team (Latest Contact Info) Description 02/21/2025 Travel Social History Tobacco Use Types Packs/Day Years Used Date Smoking Tobacco: Never Assessed Comments Unknown Sex and Gender Information Value Date Recorded Sex Assigned at Not on file Legal Sex Female 10:55 AM EDT Gender Identity Not on file Sexual Orientation Not on file documented as of this encounter Functional Status * Travel Screening Question Answer Date of Assessment Author Have you traveled intern[place] nic[place] or domestically in the last month? No 02/21/2025 10:08 AM EST Mych art, Generic documented as of this encounter Mental Status * Travel Screening Question Answer Entry Date Author Have you traveled intern[place] or domestically in the last month? No 02/21/2025 10:08 AM EST Mych art, Generic documented in this encounter Plan of Treatment Upcoming Encounters Date Type Department Care Team (Late st Contact Info) Description 04/06/2025 2:15 PM EST Evaluation [facility] paper sales representative Faculty [facility] [address] [place] [address] Abdiaziz Haile DMD, MD [address] [place] [address] documented as of this encounter Visit Diagnoses Not on filedocumented in this encounter Additional Health Concerns Assessment Noted Time A Body Mass Index follow-up plan has been documented for the patient 11/08/2024 3:30 PM EDT documented as of this encounter Care Teams Shirt Operator Relationship Specialty Start Date End Date Pcp, No [address] [place] [address] PCP - General Family Medicine 11/08/24 documented as of this encounter
--- OUTSIDE RECORDS SUMMARY | 2025-03-29 11:35 | XMS_ITS | Encounter Summary ---
Author Organization Healthcare Address [address] [place] [address] Care Team Providers Care Instructional Aide Name Role Phone Pcp, No Primary Care Provider Unavailabl e Encounter Details Date Type Department Care Team (Latest Contact Info) Description 02/28/2025 Travel Social History Tobacco Use Types Packs/Day Years Used Date Smoking Tobacco: Never Assessed Comments Unknown Sex and Gender Information Value Date Recorded Sex Assigned at Not on file Legal Sex Female 10:55 AM EDT Gender Identity Not on file Sexual Orientation Not on file documented as of this encounter Functional Status * Communicable Disease Screening Question Answer Date of Assessment Author Have you been in contact wit h someone who was sick? No / Unsure 02/28/2025 10:44 AM Supriya Villagran Do you have any of the follo wing new or worsening symptoms? None of these 02/28/2025 10:44 AM Sue Villagran ra * Travel Screening Question Answer Date of Assessment Author Have you traveled intern[place] nic[place] or domestically in the last month? No 02/28/2025 10:44 AM Supriya Herrera documented as of this encounter Mental Status * Communicable Disease Screening Question Answer Entry Date Author Have you been in contact wit h someone who was sick? No / Unsure 02/28/2025 10:44 AM Supriya Villagran Do you have any of the follo wing new or worsening symptoms? None of these 02/28/2025 10:44 AM Sue Villagran ra * Travel Screening Question Answer Entry Date Author Have you traveled intern[place] or domestically in the last month? No 02/28/2025 10:44 AM Supriya Herrera documented in this encounter Plan of Treatment Upcoming Encounters Date Type Department Care Team (Late st Contact Info) Description 04/06/2025 2:15 PM EST Evaluation [place] unit operator [facility] [address] [place] [address] Abdiaziz Haile DMD, MD [address] [place] [address] documented as of this encounter Visit Diagnoses Not on filedocumented in this encounter Additional Health Concerns Assessment Noted Time A Body Mass Index follow-up plan has been documented for the patient 11/08/2024 3:30 PM EDT documented as of this encounter Care Teams Instructional Aide Relationship Specialty Start Date End Date Pcp, [place] [address] PCP - General Family Medicine 11/08/24 documented as of this encounter
--- OUTSIDE RECORDS SUMMARY | 2025-03-29 11:35 | XMS_ITS | Clinical Summary ---
Author Organization Healthcare Address [address] [place] [address] Care Team Providers Care Voting Machine Mechanic Name Role Phone Pcp, No Primary Care Provider Unavailabl e Encounters Date Type Department Care Team Description 02/28/2025 10:44 AM EST - 02/28/2025 11:59 PM EST Hospital Encounter [facility] [address] [place] [address] Monochorionic diamniotic twin gestation in second trimester Discharge Disposition: Home or Self Care 02/28/2025 Travel 02/21/2025 Travel 01/25/2025 1:52 PM EDT - 01/25/2025 11:59 PM EDT Hospital Encounter Medical [facility] [address] [facility] [place] [address] Monochorionic diamniotic twin gestation in second trimester Discharge Disposition: Home or Self Care 01/25/2025 Travel 01/24/2025 Travel 12/28/2024 1:45 PM EDT - 12/28/2024 11:59 PM EDT Hospital Encounter Medical Office [facility] [address] [place] [address] Monochorionic diamniotic twin gestation in second trimester Discharge Disposition: Home or Self Care 12/28/2024 Travel from Last 3 Months Social History Tobacco Use Types Packs/Day Years Used Date Smoking Tobacco: Never Assessed Comments Unknown Sex and Gender Information Value Date Recorded Sex Assigned at Not on file Legal Sex Female 10:55 AM EDT Gender Identity Not on file Sexual Orientation Not on file Plan of Treatment Upcoming Encounters Date Type Department Care Team (Late st Contact Info) Description 04/06/2025 2:[address] [facility] morning caregiver Faculty [facility] [address] [place] [address] Abdiaziz Haile DMD, MD [address] [place] [address] Health Maintenance Due Date Last Done Comments [facility]-Depression Screening 2004 [facility]-HIV Screening 2004 [facility]-Hepatitis C Screening 2004 [facility]-/Child/Adol SDOH Screenings 2004 HPV Vaccines (2 - 2-dose series) 04/20/2017 10/18/2016 [facility]-Hepatitis A Vaccines (2 of 2 - 2-dose series) 07/02/2018 01/01/2018 [facility]- SDOH Screenings 2022 [facility]-Adult SDOH Screenings 2022 [id number] Vaccine (1 - season) 2024 [facility]-Influenza Vaccine (#1) 2024 [facility]-DTaP,Tdap,and Td Vaccines (9 - Td or Tdap) 02/22/2035 02/22/2025, 09/09/2023, 10/18/2016, Additional history exists [facility]-Zoster Vaccines (1 of 2) 2054 09/14/2008, 06/24/2005 [facility]-HIB Vaccines Completed 06/24/2005, , 2004, Additional history exists [facility]-Hepatitis B Vaccines Completed 006, 2004, 2004 [facility]-Pneumococcal Vaccine: Pediatrics (0 to 5 Years) and At-Risk Patients (6 to 49 Years) Aged Out 06/24/2005, 06/24/2005, 01/16/2005, Additional history exists No longer eligible based on patient's age to complete this topic [facility]-IPV Vaccines Completed 09/14/2008, , 06/24/2005, Additional history exists [facility]-Varicella Vaccines Completed 09/14/2008, 2005 [facility]-Rotavirus Vaccines Aged Out No lo nger eligible based on patient's age to complete this topic Procedures Procedure Name Priority Date/Time Associated Diagnosis Comments OB US FOLLOW UP TRANSABDOMINAL APPROACH Routine 02/28/2025 11:16 AM EST Monochorionic diamniotic twin gestation in second trimester OB US FOLLOW UP TRANSABDOMINAL APPROACH Routine 01/25/2025 3:08 PM EDT Monochorionic diamniotic twin gestation in second trimester OB US DETAIL ANATOMY Routine 12/28/2024 3:15 PM EDT Monochorionic diamniotic twin gestation in second trimester from Last 3 Months Results * OB US Follow Up Transabdominal Approach (02/28/2025 11:16 AM EST) Only the most recent of2 resultswithin the time period is included. Anatomical Region Laterality Modality Body Ultrasound 02/28/2025 10:3 9 AM EST Impressions 03/01/2025 8:27 AM EST The OB Ultrasound you requested has been resulted. Please navigate to the Imaging tab in [employer] for review. This message has been generated by the interface. Narrative Procedure Note Rachell Kelly MD - 03/01/2025 IMPRESSION: The OB Ultrasound you requested has been resulted. Please navigate to theImaging tab in [employer] for review. This message has been generated by theinterface. us Monty Espino APRN, CNM IMG OB US PROCEDURES Fin al Result * OB US Detail Anatomy (12/28/2024 3:15 PM EDT) Anatomical Region Laterality Modality Body Ultrasound 12/28/2024 1:30 PM EDT Impressions 12/28/2024 4:24 PM EDT The OB Ultrasound you requested has been resulted. Please navigate to the Imaging tab in [employer] for review. This message has been generated by the interface. Narrative Procedure Note Julieta Mas MD - 12/28/2024 IMPRESSION: The OB Ultrasound you requested has been resulted. Please navigate to theImaging tab in [employer] for review. This message has been generated by [facility] Monty Espino APRN, OSCAR IMG OB US PROCEDURES Fin al Result from Last 3 Months Insurance [employer] Care Teams Voting Machine Mechanic Relationship Specialty Start Date End Date Pcp, Cheryl [address] [place] [address] PCP - General Family Medicine 11/08/24
--- OUTSIDE RECORDS SUMMARY | 2025-03-29 11:35 | XMS_ITS | Referral Summary ---
Author Organization [employer] ([place], [place], [place], [place], [place]) Address [address] [place] [address] Care Team Providers Care Storage Battery Charger Name Role Phone Sofi Villar PA-C Primary Care Provider [phone] Allergies No known active allergies Medications acyclovir (ZOVIRAX) 400 MG tablet Take 1 tablet (400 mg total) by mouth 2 (two) times daily. Active famotidine (PEPCID) 20 MG tablet Take 1 tablet (20 mg total) by mouth 2 (two) times daily. Active Active Problems Problem Noted Date Diagnosed Date Normal labor 11/23/2023 Social History Tobacco Use Types Packs/Day Years Used Date Smoking Tobacco: Never Smokeless Tobacco: Never Tobacco Cessation:Counseling Given: Not Answered Alcohol Use Standard Drinks/Week Comments Never 0 (1 standard drink = 0.6 oz pur e alcohol) Utilities Answer Date Recorded In the past 12 months, has t he electric, gas, oil, or water company threatened to shut off services in your home? No 11/23/2023 Interpersonal Safety Answer Date Record ed How often does anyone, medardo edwards family and friends, physically hurt you? Never 11/23/2023 How often does anyone, medardo edwards family and friends, insult or talk down to you? Never 11/23/2023 How often does anyone, medardo edwards family and friends, threaten you with harm? Never 11/23/2023 How often does anyone, medardo edwards family and friends, scream or curse at you? Never 11/23/2023 Housing Stability Answer Date Recorded What is your living situation today? I have a [facility] place to live 11/23/[address] you li ve. Do you have problems with any of the following? None of the above 11/23/2023 Food Insecurity Answer Date Recorded Within the past 12 months, y ou worried that your food would run out before you got money to buy more. Never true 11/23/2023 Within the past 12 months, t he food you bought just didn't last and you didn't have money to get more. Never true 11/23/2023 Transportation Needs Answer Date Record ed In the past 12 months, has l ack of reliable transportation kept you from medical appointments, meetings, work or from getting things needed for daily living? No 11/23/2023 Financial Resource Strain Answer Date R ecorded How hard is it for you to pa y for the very basics like food, housing, medical care, and heating? Would you say it is: Not hard at all 11/23/2023 Employment Answer Date Recorded Do you want help finding or keeping work or a job? I do not need or want help 11/23/2023 Family and Community Support Answer Quan e Recorded If for any reason you need h elp with day-to-day activities such as bathing, preparing meals, shopping, managing finances, etc., do you get the help you need? I don't need any help 11/23/2023 Feeling Lonely or Isolated 0 11/22 Educational Attainment Answer Date Rom rded Do you speak a language other than [place] at [facility]? No 11/23/2023 Do you want help with school or training? For example, starting or completing job training or getting a high school diploma, GED or equivalent. No 11/23/2023 Physical Activity Answer Date Recorded Number of minutes of exercise per week 0 11/23/2023 Self Management Answer Date Recorded Because of a physical, menta l, or emotional condition, do you have serious difficulty concentrating, remembering, or making decisions? (5 years or older) No 11/23/2023 Because of a physical, menta l, or emotional condition, do you have difficulty doing errands alone such as visiting a doctor's office or shopping? (15 years or older) No 11/23/2023 Substance Use Answer Date Recorded How many times in the past y ear have you used prescription drugs for non-medical reasons? Never 11/23/2023 How many times in the past year have you used il legal drugs? Never 11/23/2023 Comments No Sex and Gender Information Value Date Recorded Sex Assigned at Not on file Legal Sex Female 11:37 PM CDT Gender Identity Not on file Sexual Orientation Not on file Last Filed Vital Signs Vital Sign Reading Time Taken Comments Blood Pressure 130/87 11/25/2023 8:00 AM EDT Pulse 75 11/25/2023 8:00 AM EDT Temperature 36.8 C (98.2 F) 11/25/2023 8:00 AM EDT Respiratory Rate 16 11/25/2023 8:00 AM EDT Oxygen Saturation 99% 11/25/2023 8:00 AM EDT Inhaled Oxygen Concentration - - Weight 78 kg (172 lb) 11/23/2023 1:00 AM EDT Height 167.6 cm (5' 6 ) 11/23/2023 1:00 AM EDT Body Mass Index 27.76 11/23/2023 1:00 AM EDT Plan of Treatment Not on file Insurance [employer] [facility] [place] [address] Advance Directives For more information, please contact: [phone] * Full Code (Latest Code Status on File) Date Activated Date Inactivated Comments 11/23/2023 1:52 PM 11/25/2023 1:03 PM If no pulse: No intervention If has pulse: Use intubation, mechanical ventilation, defibrillation, ACLS medications, or cardioversion as indicated. Call [employer]ODU[employer] GATHERER * Full Code Date Activated Date Inactivated Comments 11/23/2023 12:33 AM 11/23/2023 1:52 PM Care Teams Storage Battery Charger Relationship Specialty Start Date End Date Sofi Villar PA-C [address] [place] [address] PCP - General Physician Conductor/Engineer 11/24/23
--- OUTSIDE RECORDS SUMMARY | 2025-03-29 11:35 | XMS_ITS | Clinical Summary ---
Author Organization [employer] ([place], [place], [place], [place], [place]) Address [address] [place] [address] Care Team Providers Care Physical Education Teacher Name Role Phone Sofi Villar PA-C Primary Care Provider [phone] Allergies No known active allergies Medications acyclovir [...] your living situation today? I have a [facility] place to live 11/23/2023 Think about [...] Do you speak a language other than [place] at [facility]? No 11/23/2023 Do you want [...] 11/23/2023 1:00 AM EDT Plan of Treatment Health Maintenance Due Date Last Done Comments Depression Screening (12+) 2016 HIV Screening 05/31/2019 Meningococcal B Vaccine (1 o f 2 - Standard) 2020 Hepatitis C Screening 2022 DTAP/TDAP/TD VACCINES (1 - Tdap) 05/31/2023 Tobacco Cessation Counseling and Screening (12+) 11/22/2024 11/23/2023 COVID-19 VACCINE (1 - 2023-2 5 season) 2024 Influenza Vaccine (#1) 2024 Pneumococcal Vaccine: 0-49 Years Aged Out No longer eligible based on patient's age to complete this topic Insurance [facility] Advance Directives For more information, please contact: [phone] * Full Code (Latest Code Status on File) Date Activated Date Inactivated Comments 11/23/2023 1:52 PM 11/25/2023 1:03 PM If no pulse : No intervention If has pulse: Use intubation, mechanical ventilation, defibrillation, ACLS medications, or cardioversion as indicated. Call REFRIGERATION SERVICE INSPECTOR * Full Code Date Activated Date Inactivated Comments 11/23/2023 12:33 AM 11/23/2023 1:52 PM Care Teams Physical Education Teacher Relationship Specialty Start Date End Date Sofi Villar PA-C [address] [place] [address] PCP - General Physician Campaign Director 11/24/23
[2025-04-01 06:09] LABS: HSV-1 DNA Negative (Negative); HSV-2 DNA Negative (Negative)
== END 2025-03-29 23:59 | disposition home or self-care (01) ==
LOC: LAB 11:24
PROVIDERS: PCP Family Medicine; Visit Provider Obstetrics & Gynecology
DX: B00.9 Herpesviral infection, unspecified (principal)
CPT/HCPCS: 36415; 87529